=== PATIENT | female | born 1990 | race African-American/Black ===

== ENCOUNTER 2021-01-09 19:43 | Emergency (ER) | payer OTHER, SELFPAY ==
--- NOTE | ~2021-01-09 | XR_ITS ---
EXAMINATION: XR abdomen/kub 1V EXAM DATE: 01/09/2021 21:33 INDICATION: Lower pelvic pain, cramping. TECHNIQUE: Frontal projection of the upper abdomen, frontal projection lower abdomen/pelvis for inter pretation. There is no prior study for comparison. FINDINGS: There is expected amount of colonic stool and gas. No small bowel dilation, nonobstructiv e bowel gas pattern. There are no suspicious calcifications identified. There is no organomegaly suspected. The bones are unremarkable. There is IUD projecting over the central aspect of the pelv is. IMPRESSION: Unremarkable abdomen x-ray exam. Reviewed, dictated and finalized at location A.
[2021-01-09 19:45] VITALS: BP 152/78; PULSE 77; RESP 18; TEMP 36.6; O2SAT 99
--- NOTE | 2021-01-09 21:32 | ED.GENADULT ---
HPI - General Adult General Chief complaint: Urogenital-Female Stated complaint: my iud fell out Time Seen by Provider: 01/09/21 21:08 Source: patient and RN notes reviewed Mode of arrival: ambulatory Limitations: no limitations History of Present Illness HPI narrative: Patient is a 30-year-old female who presents to emergency department for evaluation of concern for displacement of her IUD noting that she could see the strings is also noted some cramping this was noted today denies any fever chills nausea vomiting urinary symptoms injury Related Data Home Medications Medication Instructions Recorded Confirmed Vitamin D3 01/09/21 buspirone mg 01/09/21 pewexndywo-hgptpbzkxmnlp-mnzm cap 01/09/21 escitalopram oxalate mg 01/09/21 losartan-hydrochlorothiazide tablet 01/09/21 Allergies Allergy/AdvReac Type Severity Reaction Status Date / Time Penicillins Allergy Severe Anaphylaxis Verified 01/09/21 19:49 Review of Systems Review of Systems: All systems reviewed & are unremarkable except as noted in HPI and below PMFSH Social History Social History Gender identity (if verbalized by the patient): Female Exam Narrative: Exam Narrative: GENERAL: Well-appearing, well-nourished, and in no acute distress. HEAD: Normocephalic, atraumatic. EYES: PERRLA and EOMI. ABDOMEN: Soft, nontender, nondistended Female genitourinary: Small amount of blood in the vaginal vault IUD strings are coming out of the cervix and appear to be in place EXTREMITIES: Normal range of motion. No edema. SKIN: Warm, dry, no rash. NEURO: No focal deficits. Alert and oriented x3. Cranial nerves II through XII grossly intact PSYCH: Normal mood and affect. Course Course Emergency Course: Patient presented no distress IUD strings were in expected position she has follow-up with gynecology on Thursday this is felt appropriate she agrees with this plan Vital Signs Vital signs: Vital Signs Temperature 97.9 F 01/09/21 19:45 Pulse Rate 77 01/09/21 19:45 Respiratory Rate 18 01/09/21 19:45 Blood Pressure 152/78 H 01/09/21 19:45 Pulse Oximetry 99 01/09/21 19:45 Temperature 97.9 F 01/09/21 19:45 Pulse Rate 77 01/09/21 19:45 Respiratory Rate 18 01/09/21 19:45 Blood Pressure 152/78 H 01/09/21 19:45 Pulse Oximetry 99 01/09/21 19:45 Medical Decision Making MDM Narrative Medical decision making narrative: Patient presented for concern of her IUD being out of place on exam they appear to be in place she will follow with gynecology on Thursday for further evaluation Vital Signs Vital Signs: Vital Signs Temperature 97.9 F 01/09/21 19:45 Pulse Rate 77 01/09/21 19:45 Respiratory Rate 18 01/09/21 19:45 Blood Pressure 152/78 H 01/09/21 19:45 Pulse Oximetry 99 01/09/21 19:45 Temperature 97.9 F 01/09/21 19:45 Pulse Rate 77 01/09/21 19:45 Respiratory Rate 18 01/09/21 19:45 Blood Pressure 152/78 H 01/09/21 19:45 Pulse Oximetry 99 01/09/21 19:45 Lab Data Labs: Lab Results 01/09/21 Range/Units 21:22 Urine Color Yellow (Yellow) Urine Appearance Clear (Clear) Urine pH 6.0 (5.0-9.0) Ur Specific [place] 1.015 (1.001-1.035) Urine Protein Negative (Negative) mg/dL Urine Glucose (UA) Negative (Negative) mg/dL Urine Ketones Negative (Negative) mg/dL Ur Blood (Man) 2+ H (Negative) Urine Nitrate Negative (Negative) Urine Bilirubin Negative (Negative) Urine Urobilinogen Negative (<2.0) mg/dL Leukocyte Esterase Rfl Negative (Negative) MACRINA/UL Urine RBC 3-5 H (0-2) /hpf Urine WBC 0-3 /hpf Ur Squamous Epith Cells Occasional (Few) /hpf Urine Bacteria Trace /hpf Urine Mucus Rare /lpf UCG Bedside Result Negative Reference Range: Negative Urine Characteristics Clear
[2021-01-09 21:40] LABS: Add Urine Microscopic? YES; Appearance Urine Clear (Clear); Bacteria Urine Trace /hpf; Bilirubin Urine Negative (Negative); Blood Urine 2+ (Negative); Color Urine Yellow (Yellow); Glucose Urine UA Negative (Negative); Ketones Urine Negative (Negative); Leukocyte Esterase Ur Negative LEU/UL (Negative); Mucus Urine Rare /lpf; Nitrate Urine Negative (Negative); Protein Urine Negative (Negative); Specific Grav Ur 1.015 (1.001-1.035); Squamous Epithelial Cell Urine Occasional /hpf (Few); Urobilinogen Urine Negative mg/dL (<2.0); WBC Urine 0-3 /hpf
[2021-01-09 22:45] VITALS: BP 140/72; PULSE 76; RESP 18; TEMP 36.8; O2SAT 98
== END 2021-01-09 22:45 | disposition home or self-care (01) ==
PROVIDERS: Emergency Medicine Emergency Medical Services; Emergency Provider Emergency Medicine
DX: R10.2 Pelvic and perineal pain (principal); Z97.5 Presence of (intrauterine) contraceptive device
CPT/HCPCS: 74018; 81001; 81025; 99283

== ENCOUNTER 2021-02-08 09:01 | Emergency (ER) | payer OTHER, SELFPAY ==
[2021-02-08 09:10] VITALS: BP 148/92; PULSE 69; RESP 16; TEMP 37.2; O2SAT 100
--- NOTE | 2021-02-08 10:38 | ED.EAR ---
HPI - Ear Problem General Chief complaint: Ear Stated complaint: Ear Pain Time Seen by Provider: 02/08/21 10:30 Source: patient, RN notes reviewed and old records reviewed Mode of arrival: ambulatory Limitations: no limitations History of Present Illness HPI Narrative: 30-year-old female who presents to [facility] with complaints of right ear pain described as pressure rates it 5/10. She reports no changes in her hearing and has not had any drainage from her right ear. Patient states some clear nasal drainage at time, and she states that she has some mild discomfort when she swallows which she attributes to drainage. Patient has not been swimming recently and has not instilled any ear drops to her ear or taken any OTC medications for her discomfort. Patient does us Flonase daily for sinus allergies. MD Complaint: ear pain Location: right ear Duration: constant Discharge from ear: Reports no Related Data Home Medications Medication Instructions Recorded Confirmed buspirone 5 mg PO TID 02/08/21 02/08/21 nrairlvsvb-ylnjcdfvinool-wwui 1 cap PO Q4-6H 02/08/21 02/08/21 escitalopram oxalate 20 mg PO QAM 02/08/21 02/08/21 fluticasone propionate 2 spray INTRANASAL DAILY 02/08/21 02/08/21 losartan-hydrochlorothiazide 1 tablet PO DAILY 02/08/21 02/08/21 metoclopramide HCl 10 mg PO DAILY 02/08/21 02/08/21 Allergies Allergy/AdvReac Type Severity Reaction Status Date / Time Penicillins Allergy Severe Anaphylaxis Verified 01/09/21 19:49 Sulfa (Sulfonamide AdvReac Nausea and Verified 02/08/21 10:05 Antibiotics) Vomiting Review of Systems Review of Systems: CONSTITUTIONAL: Denies fever, chills, or sweats. EYES: Denies visual changes, redness, or discharge. ENT: Positive rhinorrhea, no congestion, mild sore throat, positive right ear otalgia. CARDIOVASCULAR: Denies chest pain, palpitations, or edema. RESPIRATORY: Denies cough or dyspnea. GASTROINTESTINAL: Denies abdominal pain, nausea, vomiting, or diarrhea. GENITOURINARY: Denies dysuria or hematuria. SKIN: Denies rash or itching. MUSCULOSKELETAL: Denies back pain, joint pain, or myalgia. NEUROLOGIC: Denies headache, numbness, or weakness. PSYCHIATRIC: Positive history of anxiety or depression. All systems reviewed & are unremarkable except as noted in HPI and below PMFSH Past Medical History Medical History (Updated 02/11/21 @ 15:16 by Estefanía Hoover NP) Allergic sinusitis Anxiety and depression Hypertension Surgical History Surgical History (Updated 02/11/21 @ 15:10 by Estefanía Hoover NP) History of removal of ovarian cyst Family History Family History (Updated 02/11/21 @ 15:11 by Estefanía Hoover NP) Mother Multiple sclerosis Grandparent Diabetes mellitus Hypertension Esophageal cancer Social History Social History (Updated 02/11/21 @ 15:13 by Estefanía Hoover NP) Smoking status: Never smoker Alcohol intake: current Alcohol use details: social Substance use: never Living arrangements: with family Gender identity (if verbalized by the patient): Female Comments At time of signature agree with nursing documentation of social medical , surgical and family history. There is not relevant family history pertinent to presenting complaint Exam Narrative: GENERAL: Well-appearing, well-nourished, and in no acute distress. HEAD: Normocephalic, atraumatic. EYES: PERRLA and EOMI. ENT: Nares mildly red with clear rhinorrhea no epistaxis.right TM dull with fluid noted, Left TM normal with good light reflex, Throat red with bilateral tonsils enlarged and red with white lesions noted, some pain with swallowing especially, no shortness of breath or inability to swallow noted. Mucous membranes moist. NECK: Supple. mild lymphadenopathy CHEST: Clear to auscultation. No respiratory distress.SAO2 100% on room air HEART: Regular rate and rhythm. No murmur heard. Normal peripheral pulses. ABDOMEN: Soft, nontender, nondistended, normal active bowel sound
== END 2021-02-08 10:49 | disposition home or self-care (01) ==
PROVIDERS: Emergency Provider Registered Nurse
DX: J03.90 Acute tonsillitis, unspecified (principal); H69.91 Unspecified Eustachian tube disorder, right ear; I10 Essential (primary) hypertension; F41.9 Anxiety disorder, unspecified; F32.9 Major depressive disorder, single episode, unspecified
CPT/HCPCS: 87081; 87880; 99213; G0463